=== PATIENT | male | born 1955 ===

== ENCOUNTER 2018-10-11 06:50 | Emergency (ER) | payer BC ==
[2018-10-11 07:07] VITALS: RESP 18
[2018-10-11] MEDS ORDERED: DiphenhydrAMINE 50 mg/ml Inj IVP STA (07:39)
[2018-10-11] MEDS ORDERED: Sodium Chloride 0.9% 500 ML IV ONE ×2 (07:39→07:46)
--- NOTE | 2018-10-11 07:43 | C.PDOC ---
History Of Present Illness 62 year old male patient presents to the emergency room complaining of itchy rash all over his body and allergic reaction for 4 days. Patient reports he believed it started when he ate a pork dish. Pt was seen by his PMD Dr. March who prescribed him 10 mg prednisone and told him to take benadryl, which patient took only 1 tab of Benadryl. Patient reports rash got worse and started spreading all over his body. Patient went to urgent care [facility] and received a shot with little relief. Patient was told to come to the hospital if he does not feel better. Today, patient feels more ithcy, red and noticed his face was a little swollen. Pt denies shortness of breath, difficulty swallowing, dizziness, fever and chills. Time Seen by Provider: 10/11/18 07:09 Chief Complaint (Nursing): Allergic Reaction History Per: Patient History/Exam Limitations: no limitations Onset/Duration Of Symptoms: Days (x4) Current Symptoms Are (Timing): Still Present Possible Cause: Food Associated Symptoms: Skin Rash, Redness Home/EMS Treatment: Benadryl, Other (prednisone ) Past Medical History Reviewed: Historical Data, Nursing Documentation, Vital Signs Vital Signs: Last Vital Signs Temp 98.7 F 10/11/18 07:01 Pulse 119 H 10/11/18 07:01 Resp 18 10/11/18 07:01 BP 175/88 H 10/11/18 07:01 Pulse Ox 99 10/11/18 07:01 - Medical History PMH: HTN, Hyperlipidemia Family History: States: No Known Family Hx - Social History Hx Alcohol Use: No Hx Substance Use: No - Immunization History Hx Tetanus Toxoid Vaccination: No Hx Influenza Vaccination: No Hx Pneumococcal Vaccination: No Review Of Systems Constitutional: Negative for: Fever, Chills ENT: Negative for: Other (difficulty swallowing ) Respiratory: Negative for: Shortness of Breath Skin: Positive for: Rash, Other (redness) Neurological: Negative for: Dizziness Physical Exam - Physical Exam Appears: Non-toxic, No Acute Distress, Other (anxious ) Skin: Warm, Dry, Rash (diffuse brightly erythematous maculopapular rash including face.) Head: Normacephalic, Swelling (right lower cheek mildly swollen ) Eye(s): bilateral: Normal Inspection, EOMI Nose: Normal, No Flaring, No Discharge Oral Mucosa: Moist Tongue: Normal Appearing, No Swelling Lips: Normal Appearing, No Swelling Throat: Normal, No Erythema, No Drooling, Other (uvula midline ) Neck: Supple Chest: Symmetrical Cardiovascular: Rhythm Regular, No Murmur Respiratory: Normal Breath Sounds, No Rales, No Rhonchi, No Wheezing Extremity: Bilateral: Atraumatic, Normal ROM Neurological/Psych: Oriented x3, Normal Speech Gait: Steady ED Course And Treatment O2 Sat by Pulse Oximetry: 99 (RA) Pulse Ox Interpretation: Normal Medical Decision Making Medical Decision Making: Impression: allergic reaction Plan: -- benadryl -- pepcid -- solu-medrol -- IV fluids On re-evaluation the patient was sitting comfortably in no distress. He reported feeling better. His rash appeared less erythematous and decreased on extremities. He had no shortness of breath and speaking clear sentences. He felt comfortable with discharge and given verbal and written instructions on taking medication. Disposition Counseled Patient/Family Regarding: Diagnosis, Need For Followup, Rx Given - Disposition Referrals: Rafal March MD [Primary Care Provider] - Disposition: HOME/ ROUTINE Disposition Time: 09:15 Condition: IMPROVED Additional Instructions: [place] Benadryl 25 mg (1 o 2 tabletas) cada 6 horas [place] Prednisone marcelino se le indique, siga las instrucciones del paquete Evite cualquier alrgeno potencial Alexandra un seguimiento con zhu mdico o alergista para las pruebas de alergia Prescriptions: DiphenhydrAMINE [Benadryl] 25 mg PO Q6 #30 cap Methylprednisolone [Medrol Dose Pack (21 tabs)] 4 mg PO DAILY #21 mg Instructions: Dereck (RADHA) Print Language: CROATIAN - Clinical Impression Clinical Impression: Urticaria - PA / ASSISTANT DEAN / Resident Statement / has reviewed & agrees with the documentation as recorded. - Scribe Statement The provider has reviewed the documentation as recorded by the Dusty Lubin Do All medical record entries made by the Scribe were at my direction and personally dictated by me. I have reviewed the chart and agree that the record accurately reflects my personal performance of the history, physical exam, medical decision making, and the department course for this patient. I have also personally directed, reviewed, and agree with the discharge instructions and disposition.
[2018-10-11] MEDS ORDERED: DiphenhydrAMINE 50 mg/ml Inj ONE (07:45)
[2018-10-11 09:17] VITALS: BP 156/82; PULSE 91; TEMP 98.1
[2018-10-11 09:21] VITALS: O2SAT 99
== END 2018-10-11 09:17 | disposition home or self-care (01) ==
LOC: C.ER 06:50 → SUPCPDRO 06:50 → C.ER 09:17
DX: L50.9 Urticaria, unspecified (principal)
CPT/HCPCS: 96361; 96374; 96375; 99284; J1200; J2930; J7040